=== PATIENT | female | born 1950 | race Two or more races ===

== ENCOUNTER 2024-05-08 07:45 | Inpatient (IN) | payer OTHER ==
[~2024-05-08] VITALS: Ht 152.4 cm; Wt 56.2 kg
[2024-05-08 09:15] LABS: URINE APPEARANCE Clear; URINE BILIRRUBIN Negative (NEGATIVE); URINE BLOOD Trace; URINE COLOR Yellow; URINE GLUCOSE Negative (NEGATIVE); URINE LEUKOCYTE Moderate; URINE NITRATE Negative; URINE PROTEIN Negative (NEGATIVE); URINE UROBILINOGEN 0.2 E.U./dl
[2024-05-08 09:19] LABS: URINE EPITHELIAL CELLS 11.2 uL (0.0-38.8); URINE RBC 6.7 uL (0.0-20.8)
[2024-05-08 09:19] LABS: HEMATOCRIT 36.1 % (36.0-45.00); HEMOGLOBIN 12.3 g/dL (12.0-15.00); MEAN CELL VOLUME 86.9 fL (80.00-100.00); MEAN CORPUSCULAR HEMOGLOBIN 29.7 pg (27.00-32.0); MEAN CORPUSCULAR HGB CONC 34.2 g/dl (32.0-36.0); PLATELET COUNT 289 K/uL (150-450); RED BLOOD COUNT 4.15 M/uL (4.00-6.00); RED CELL DISTRIBUTION WIDTH 13.2 % (11.5-14.5)
[2024-05-08 09:37] LABS: INR 1.04; PROTHROMBIN TIME 10.9 SECONDS (9.0-11.5)
[2024-05-08 09:40] LABS: ALBUMIN 3.8 gm/dL (3.4-5.0); BILIRUBIN TOTAL 0.95 mg/dL (0.3-1.2); CALCIUM 9.8 mg/dL (8.5-10.1); CREATININE SERUM 0.69 mg/dL (0.55-1.02); GFR 83.63; GLOBULINA 3.5 G/DL (2.4-3.5); POTASSIUM 4.94 mEq/L (3.5-5.1); TOTAL PROTEIN 7.3 gm/dL (6.4-8.2)
[2024-05-15] MEDS ORDERED: TRANEXAMIC ACID 100MG/1ML (1000MG) AMPUL IV ONE ×2 (08:15)
[2024-05-15] MEDS ORDERED: ISOPROPYL ALCOHOL 30 ML OUNCE TOP ONE (08:15)
[2024-05-15] MEDS ORDERED: CEFAZOLIN SODIUM 1,000 MG VIAL IV ONE (08:15)
[2024-05-15] MEDS ORDERED: KETOROLAC TROMETHAMINE 60 MG VIAL IM ONE (08:30)
[2024-05-15] MEDS ORDERED: BUPIVACAINE HCL/PF 0.25% 50 ML VIAL IJ ONE (08:30)
[2024-05-15] MEDS ORDERED: MORPHINE SULFATE 4 MG/ML VIAL IV ONE (08:30)
[2024-05-15] MEDS ORDERED: POVIDONE-IODINE 3 EA MED..SWAB TOP ONE (08:30)
[2024-05-15] MEDS ORDERED: VANCOMYCIN HCL 1,000 MG VIAL IR ONE (08:30)
[2024-05-15] MEDS ORDERED: SODIUM CHLORIDE 0.45 % 1,000 ML IV SCH (08:45)
[2024-05-15] MEDS ORDERED: MORPHINE SULFATE 4 MG/ML CARTRIDGE IV PRN (08:45)
[2024-05-15] MEDS ORDERED: OxyCODONE HCL 5 MG TABLET (ROXICODONE) PO PRN (08:45)
[2024-05-15] MEDS ORDERED: ONDANSETRON HCL 2 MG/ML VIAL IV PRN (08:45)
[2024-05-15] MEDS ORDERED: GABAPENTIN 300 MG CAPSULE PO SCH (09:00)
[2024-05-15] MEDS ORDERED: CEFAZOLIN SODIUM 1,000 MG VIAL IV SCH (09:00)
[2024-05-15] MEDS ORDERED: SIMVASTATIN10 MG (10:56)
[2024-05-15] MEDS ORDERED: ST. JOSEPH ASPI81 M2 (10:56)
[2024-05-15] MEDS ORDERED: MELOXICAM15 MG (10:56)
[2024-05-15] MEDS ORDERED: CENTRUM SILVER1 EAC7 (10:56)
[2024-05-15] MEDS ORDERED: VOLTAREN ARTHRI20 GM (10:56)
[2024-05-15] MEDS ORDERED: ACETAMINOPHEN 500 MG GEL..CAP PO SCH (12:00)
[2024-05-16 07:01] LABS: HEMATOCRIT 33.3 % (36.0-45.00); HEMOGLOBIN 11.5 g/dL (12.0-15.00); MEAN CELL VOLUME 88.6 fL (80.00-100.00); MEAN CORPUSCULAR HEMOGLOBIN 30.5 pg (27.00-32.0); MEAN CORPUSCULAR HGB CONC 34.4 g/dl (32.0-36.0); PLATELET COUNT 206 K/uL (150-450); RED BLOOD COUNT 3.76 M/uL (4.00-6.00); RED CELL DISTRIBUTION WIDTH 12.9 % (11.5-14.5)
[2024-05-16] MEDS ORDERED: PERCOCET 5-3251 EACH PO (07:48)
[2024-05-16] MEDS ORDERED: CEFADROXIL500 MG PO (07:48)
[2024-05-16] MEDS ORDERED: ELIQUIS2.5 MG PO (07:48)
[2024-05-16] MEDS ORDERED: APIXABAN 2.5 MG TABLET PO SCH (09:00)
[2024-05-16] MEDS ORDERED: SENNOSIDES 1 TAB TABLET PO SCH (09:00)
[2024-05-16] MEDS ORDERED: IRON FUM,PS/FOLIC ACID/VITC/B3 1 CAP CAPSULE PO SCH (09:00)
[2024-05-16] MEDS ORDERED: SOD FERRIC GLUC COMPLX/SUCROSE 62.5 MG/5 ML AMPUL IV SCH (17:00)
[2024-05-16] MEDS ORDERED: Cyanocobalamin/Mecobalamin 1 TAB.SL SL SCH (17:00)
[2024-05-16] MEDS ORDERED: VITAMIN B COMPLEX 1 EACH PO SCH (17:00)
[2024-05-17 07:35] LABS: HEMATOCRIT 31.2 % (36.0-45.00); HEMOGLOBIN 10.7 g/dL (12.0-15.00); MEAN CELL VOLUME 87.4 fL (80.00-100.00); MEAN CORPUSCULAR HEMOGLOBIN 30.1 pg (27.00-32.0); MEAN CORPUSCULAR HGB CONC 34.5 g/dl (32.0-36.0); PLATELET COUNT 202 K/uL (150-450); RED BLOOD COUNT 3.57 M/uL (4.00-6.00); RED CELL DISTRIBUTION WIDTH 13.3 % (11.5-14.5)
== END 2024-05-17 14:20 | disposition home or self-care (01) | DRG 470 ==
LOC: O/R 05-15 04:50 → SURH 05-15 07:45 → SURG 05-15 11:13 → OB/GYN 05-15 11:13 → SURH 05-15 17:45 → OB/GYN 05-17 14:20
PROVIDERS: ADMIT Orthopaedic Surgery; ATTEND Orthopaedic Surgery
PROC: 0MNN0ZZ Release Right Knee Bursa and Ligament, Open Approach (ICD-10-PCS; 2024-05-15)
PROC: 0SUC07Z Supplement Right Knee Joint with Autologous Tissue Substitute, Open Approach (ICD-10-PCS; 2024-05-15)
PROC: 0SRC0J9 Replacement of Right Knee Joint with Synthetic Substitute, Cemented, Open Approach (ICD-10-PCS; principal; 2024-05-15 17:45)
DX: M17.11 Unilateral primary osteoarthritis, right knee (principal); D62 Acute posthemorrhagic anemia; M22.11 Recurrent subluxation of patella, right knee; I10 Essential (primary) hypertension

== ENCOUNTER 2025-08-09 08:00 | Inpatient (IN) | payer OTHER ==
[~2025-08-09] VITALS: Ht 152.4 cm; Wt 62.1 kg
[~2025-08-09 08:00] MED LIST: CEFADROXIL500 MG PO; CENTRUM SILVER1 EAC7; ELIQUIS2.5 MG PO; MELOXICAM15 MG; PERCOCET 5-3251 EACH PO; SIMVASTATIN10 MG; ST. JOSEPH ASPI81 M2; VOLTAREN ARTHRI20 GM
[2025-08-09 08:29] VITALS: BP 160/80
[2025-08-09 09:32] LABS: BASO % 0.7 % (0.1-1.2); EOS # 0.27 (0.04-0.54); EOS % 2.8 % (0.7-7.0); LYMPH # 1.66 (1.18-3.74); LYMPH % 17.5 % (19.3-53.1); MEAN PLATELET VOLUME 10.50 fl (9.4-12.4); MONO # 0.71 (0.24-0.82); MONO % 7.5 % (4.7-12.5); NEUT # 6.76 (1.56-6.13); NEUT % 71.1 % (34.0-71.1); RED CELL DISTRIBUTION WIDTH 12.5 % (11.6-14.4)
[2025-08-09 10:07] LABS: COVID-19 AG NEGATIVE (NEGATIVE)
[2025-08-09 10:10] LABS: CHOL HDL RATIO 3.5 (0-5.0); HDL 62.0 mg/dl (40-60); LDL 129.0 mg/dl (0-130); VLDL 27.0 (0-39)
[2025-08-09 10:12] LABS: ALT/SGPT 19.0 U/L (12-78); AST/SGOT 18.0 U/L (15-37); BILIRUBIN TOTAL 0.86 mg/dL (0.3-1.2); BUN CREA RATIO 15.0 (7.0-25.0); CREATININE SERUM 0.61 mg/dL (0.55-1.02); GFR 95.88; GLOBULINA 3.8 G/DL (2.4-3.5); GLUCOSE FASTING 108.0 mg/dL (65-100); INR 1.03; OSMOLALITY SERUM 279.0 MOSM/KG (275-295)
[2025-08-09 10:43] LABS: RH POSITIVE
[2025-08-09 10:52] LABS: URINE BACTERIA 37.2 uL (0.0-1933); URINE EPITHELIAL CELLS 2.9 uL (0.0-38.8); URINE RBC 3.6 uL (0.0-20.8); URINE WBC 3.6 uL (0.0-23.2)
[2025-08-09 10:55] LABS: URINE APPEARANCE Clear; URINE BILIRRUBIN Negative (NEGATIVE); URINE BLOOD Negative; URINE CAST 0.00 uL (0.0-1.40); URINE COLOR Yellow; URINE GLUCOSE Negative (NEGATIVE); URINE KETONE Negative (NEGATIVE); URINE LEUKOCYTE Trace; URINE NITRATE Negative; URINE PROTEIN Negative (NEGATIVE); URINE UROBILINOGEN 0.2 E.U./dl
[2025-08-13] MEDS ORDERED: TRANEXAMIC ACID 100MG/1ML (1000MG) AMPUL ONE (12:08)
[2025-08-13] MEDS ORDERED: CEFAZOLIN SODIUM 1,000 MG VIAL ONE (12:08)
[2025-08-13] MEDS ORDERED: KETOROLAC TROMETHAMINE 60 MG VIAL IM ONE (14:12)
[2025-08-13] MEDS ORDERED: VANCOMYCIN HCL 1,000 MG VIAL ONE (14:12)
[2025-08-13] MEDS ORDERED: METHYLPREDNISOLONE ACETATE 80 MG/ML VIAL ONE (14:12)
[2025-08-13] MEDS ORDERED: LIDOCAINE HCL 1%/EPINEPHRINE 10 ML VIAL IJ ONE (14:13)
[2025-08-13] MEDS ORDERED: BUPIVACAINE HCL/Mpf 0.5% 10ML VIAL ONE (14:13)
[2025-08-13] MEDS ORDERED: MORPHINE SULFATE 4 MG/ML CARTRIDGE IV PRN (21:00)
[2025-08-13] MEDS ORDERED: ONDANSETRON HCL 2 MG/ML VIAL IV PRN (21:00)
[2025-08-13] MEDS ORDERED: SODIUM CHLORIDE 0.45 % 1,000 ML IV SCH (21:00)
[2025-08-13] MEDS ORDERED: OxyCODONE HCL 5 MG TABLET (ROXICODONE) PO PRN (21:00)
[2025-08-14] MEDS ORDERED: ACETAMINOPHEN 500 MG GEL..CAP PO SCH
[2025-08-14] MEDS ORDERED: GABAPENTIN 300 MG CAPSULE PO SCH (01:00)
[2025-08-14] MEDS ORDERED: CEFAZOLIN SODIUM 1,000 MG VIAL IV SCH (01:00)
[2025-08-14 06:25] LABS: BASO % 0.4 % (0.1-1.2); EOS # 0.07 (0.04-0.54); EOS % 0.5 % (0.7-7.0); LYMPH # 0.94 (1.18-3.74); LYMPH % 6.8 % (19.3-53.1); MEAN PLATELET VOLUME 11.00 fl (9.4-12.4); MONO # 1.33 (0.24-0.82); MONO % 9.6 % (4.7-12.5); NEUT # 11.35 (1.56-6.13); NEUT % 82.3 % (34.0-71.1); RED CELL DISTRIBUTION WIDTH 12.4 % (11.6-14.4)
[2025-08-14] MEDS ORDERED: GABAPENTIN 300 MG CAPSULE PO ONE (08:10)
[2025-08-14] MEDS ORDERED: CEFAZOLIN SODIUM 1,000 MG VIAL ONE ×2 (08:10→15:56)
[2025-08-14] MEDS ORDERED: DUI500 PO (08:42)
[2025-08-14] MEDS ORDERED: ELIQUIS2.5 MG PO (08:42)
[2025-08-14] MEDS ORDERED: PERCOCET 5-3251 EACH PO (08:42)
[2025-08-14] MEDS ORDERED: SENNOSIDES 1 TAB TABLET PO SCH (09:00)
[2025-08-14] MEDS ORDERED: ENALAPRILAT DIHYDRATE 2.5 MG/2 ML VIAL IV PRN (10:30)
[2025-08-14] MEDS ORDERED: SIMVASTATIN 10 MG TABLET PO SCH (17:00)
[2025-08-14 17:41] VITALS: BP 146/68; O2SAT 95
[2025-08-14] MEDS ORDERED: Cyanocobalamin/Mecobalamin 1 TAB.SL SL NR (18:45)
[2025-08-14] MEDS ORDERED: SOD FERRIC GLUC COMPLX/SUCROSE 62.5 MG/5 ML AMPUL IV SCH (21:00)
[2025-08-15 01:25] VITALS: BP 112/69; O2SAT 96
[2025-08-15 06:38] LABS: BASO % 0.5 % (0.1-1.2); EOS # 0.36 (0.04-0.54); EOS % 3.0 % (0.7-7.0); LYMPH # 0.96 (1.18-3.74); LYMPH % 7.9 % (19.3-53.1); MEAN PLATELET VOLUME 10.80 fl (9.4-12.4); MONO # 1.47 (0.24-0.82); NEUT # 9.23 (1.56-6.13); NEUT % 75.9 % (34.0-71.1); RED CELL DISTRIBUTION WIDTH 12.5 % (11.6-14.4)
[2025-08-15 06:58] LABS: MONO % 12.1 % (4.7-12.5)
[2025-08-15] MEDS ORDERED: Cyanocobalamin/Mecobalamin 1 TAB.SL SL SCH (09:00)
[2025-08-15] MEDS ORDERED: IRON FUM,PS/FOLIC ACID/VITC/B3 1 CAP CAPSULE PO SCH (09:00)
[2025-08-15 11:04] VITALS: BP 131/70; O2SAT 95
[2025-08-15 16:00] VITALS: BP 149/74; O2SAT 99
== END 2025-08-15 18:40 | DRG 470 ==
LOC: SURG 08-13 08:00 → O/R 08-13 20:36 → SURG 08-13 23:15 → O/R 08-14 10:29 → SURH 08-14 16:03
PROVIDERS: ADMIT Orthopaedic Surgery; ATTEND Orthopaedic Surgery
PROC: 0MNN0ZZ Release Right Knee Bursa and Ligament, Open Approach (ICD-10-PCS; 2025-08-13)
PROC: 0SUD07Z Supplement Left Knee Joint with Autologous Tissue Substitute, Open Approach (ICD-10-PCS; 2025-08-13)
PROC: 0SRD0JZ Replacement of Left Knee Joint with Synthetic Substitute, Open Approach (ICD-10-PCS; principal; 2025-08-13 23:15)
DX: M17.12 Unilateral primary osteoarthritis, left knee (principal); D62 Acute posthemorrhagic anemia; I10 Essential (primary) hypertension; E03.9 Hypothyroidism, unspecified